=== PATIENT | male | born 1940 | race Caucasian/White ===

== ENCOUNTER 2020-12-10 16:10 | Inpatient (IN) | payer OTHER ==
[~2020-12-10] VITALS: Ht 167.6 cm; Wt 85.0 kg
--- NOTE | ~2020-12-10 | CN ---
PATIENT NAME:MIKY OSUNA MEDICAL RECORD: [id number] : 40 LOCATION:D.[facility] [place] ADMIT DATE: 12/10/20 ACCOUNT: [id number] CONSULTING PHYSICIAN: JARVIS NOVAK MD REFERRING PHYSICIAN: FELIPE GRECO MD DATE OF CONSULTATION: 12/13/2020 HISTORY OF PRESENT ILLNESS: The patient is an 80-year-old male with episodes of paroxysmal atrial fibrillation with rapid ventricular response and recent diagnosis of colon CA. I asked to evaluate from a cardiovascular standpoint. PAST MEDICAL HISTORY: Significant for; 1. Paroxysmal atrial fibrillation with rapid ventricular response -- currently in sinus rhythm. 2. Recently diagnosed colon cancer. PHYSICAL EXAMINATION: GENERAL: Pleasant, elderly white male, lying, in no apparent distress. VITAL SIGNS: Blood pressure 116/70, pulse 70 (regular). HEENT: Sclerae are clear; conjunctivae pink. NECK: Supple; no appreciated JVD. HEART: Regular rhythm and rate. I do not appreciate murmurs, gallops or rubs. LUNGS: Clear bilaterally. ABDOMEN: Benign. EXTREMITIES: Negative for edema. NEUROLOGIC: Nonfocal. LABORATORY DATA: Hemoglobin and hematocrit 11.1 and 34.4, platelet count is 200. Sodium 134, potassium 3.6, BUN 16, creatinine is 1.2. Troponin 0.017 (negative). DIAGNOSTIC DATA: Telemetry: Normal sinus rhythm at 70 beats per minute. MEDICATIONS: 1. Inderal 10 mg t.i.d. 2. Zosyn 4.5 g IV q.6 hours. 3. Flomax 0.4 mg daily. ASSESSMENT: 1. Paroxysmal atrial fibrillation -- currently in sinus rhythm. 2. Newly diagnosed colon cancer. PLAN: Continue current medical management at this time. We will schedule echocardiogram to assess LV function, valvular status. No further cardiac workup indicated at this time. Further recommendation as clinically indicated. Thank you for allowing us to participate in the care of this patient. TRANSINT:[id number] Voice Confirmation ID: [id number] DOCUMENT ID: [id number] CONSULT REPORT [id number] ENRRIQUEJARVIS GLEZ MD CC: [id number] DICTATION DATE: 12/13/20909 FACULTY DEAN: 12/13/20 1706 ADM IN [facility] [id number] [place] [address]
--- NOTE | ~2020-12-10 | EC ---
PATIENT:MIKY OSUNA DATE OF SERVICE: 12/10/20 SEX: M MEDICAL RECORD: [id number] DATE OF : 40 LOCATION:D.[facility] [place] AGE OF PATIENT: 80 ADMISSION DATE: 12/10/20 REFERRING PHYSICIAN: INTERPRETING PHYSICIAN: JARVIS BARR MD ECHOCARDIOGRAM REPORT ECHO CHARGES 4 ECHO COMPLETE Date: 12/13/20 CLINICAL DIAGNOSIS: TACHYCARDIA ECHOCARDIOGRAPHIC MEASUREMENTS (adult normal given) AC root (d.<3.7cm) 3.3 cm LV Septum d (<1.2 cm> 1.4 cm Valve Excursion 1.8 cm LV Septum (systole) 1.7 cm Left Atria (s.<4.0cm> 3.3 cm LVPW d(<1.2cm) 1.3 cm RV (d.<2.3cm) 4.0 cm LVPW (sytole) 1.8 cm LV diastole(<5.6CM) 5.2 cm MV E-F(>70mm/sec) cm LV systole 2.9 cm LVOT Diameter 2.0 cm MV exc.(>10mm) 1.3 cm Est.ejection fraction (50-75%) % DOPPLER: LVIT cm/sec A 76.0 cm/sec E 68.0 cm/sec LA cm/sec RVSP 42 mmHg LVOT 106 cm/sec AOP1/2T m/s Asc. Ao 165 cm/sec RVOT 64 cm/sec RA cm/sec PA 125 cm/sec AV Gradient Peak 10.84mmHg AV Mean 5.73 mmHg AV Area 2.1 cm MV Gradient Peak 2.59 mmHg MV Mean 1.12 mmHg MV Area cm COMMENTS: Network Contractor: 2 CHELSIE PUENTES Sales Promotion Manager: 5 Dr. Barr TAPE# PACS Pericardial Effusion N DATE OF SERVICE: CLINICAL INDICATION: Tachycardia. INTERPRETATION: Normal left ventricular chamber size and contractile function with ejection fraction of 55% to 60%. FINDINGS: Left atrial chamber appears normal. Right atrium and right ventricular chamber size and function appears normal. Aortic valve appears normal. Mild aortic regurgitation. No aortic stenosis. Mitral valve appears ECHOCARDIOGRAM REPORT [id number] MIKY OSUNA normal. Mild mitral regurgitation. No mitral stenosis. Tricuspid valve appears normal. Mild tricuspid regurgitation. No tricuspid stenosis. Pulmonic valve appears normal. No pulmonary insufficiency. No pericardial effusion visualized. IMPRESSION: Normal left ventricular chamber size and contractile function with an ejection fraction 55% to 60%. TRANSINT:[id number] Voice Confirmation ID: [id number] DOCUMENT ID: [id number] JARVIS BARR MD CC: [id number] DICTATION DATE: 12/13/201447 LEATHER SEASONER: 12/13/20 1701 ADM IN [facility] [address] [place] [address]
[2020-12-10] MEDS ORDERED: PROSCAR5 MG PO (16:37)
[2020-12-10] MEDS ORDERED: GABAPENTIN100 MG PO (16:37)
[2020-12-10] MEDS ORDERED: PROPRANOLOL HCL20 MG PO (16:39)
[2020-12-10] MEDS ORDERED: FLOMAX0.4 MG PO (16:56)
[2020-12-10] MEDS ORDERED: PROTONIX40 MG PO (16:57)
[2020-12-10 17:33] LABS: BASOPHILS 0.1 % (0-2); EOSINOPHILS 0.1 % (0-7); HEMATOCRIT 39.3 % (42.0-54.0); HEMOGLOBIN 13.1 g/dL (13.5-17.5); IMMATURE GRANULOCYTES 0.1 % (0-5); LYMPHOCYTE ABS# 0.86 10x3/uL (1.32-3.57); LYMPHOCYTES 8.7 % (15-50); MCH 26.9 pg (26.0-34.0); MCHC 33.3 g/dL (31.0-37.0); MCV 80.7 fL (80.0-100.0); MEAN PLATELET VOLUME 9.6 fL (7.4-10.4); MONOCYTES 5.7 % (2-11); NEUTROPHIL ABS# 8.46 10x3/uL (1.78-5.38); NEUTROPHILS 85.3 % (40-80); PLATELET COUNT 232 10x3/uL (130-400); RBC 4.87 10x6/uL (4.20-6.10); RDW 13.4 % (11.5-14.5); WBC 9.9 10x3/uL (4.8-10.8)
--- NOTE | 2020-12-10 17:46 | NUR ---
ADMINISTERED IV IN PATIENT RT FA 20G X1 STICK . PATIENT TOLERATED WELL. NO NEEDS VOICED AT THIS TIME. LADY BUNN IN TALKING WITH PATIENT AND SPOUSE. CONTINUE WITH PLAN OF CARE
[2020-12-10 17:50] LABS: ALBUMIN 3.6 g/dL (3.4-5.0); ANION GAP 10.8 mmol/L (8-16); BILIRUBIN - TOTAL 0.46 mg/dL (0.2-1.3); CALCIUM 9.3 mg/dL (8.5-10.1); CARBON DIOXIDE 28.2 mmol/L (21.0-32.0); CREATININE - SERUM 1.1 mg/dL (0.6-1.3); PROTEIN - SERUM 7.3 g/dL (6.4-8.2)
[2020-12-10 17:57] LABS: APTT 26.5 SECONDS (22.8-39.4); INR 1.11 (0.85-1.17); PROTIME 13.3 SECONDS (11.6-15.0)
--- NOTE | 2020-12-10 19:45 | NUR ---
RECEIVED BEDSIDE REPORT. PT LAYING IN BED A&O X4. PIV TO RIGHT FOREARM PATENT AND INFUSING, NO REDNESS OR SWELLING. ABD DISTENDED. PT HAS HEARING AIDS, GLASSES BS. PT ABLE TO AMBULATE AD DANIELLA. EDUCATED PT ON CL AND NEEDS, VERBALIZED UNDERSTANDING. BED LOW, CL IN REACH.
[2020-12-10 20:00] VITALS: BP 178/79
[2020-12-10 22:36] VITALS: BP 149/86; BMI 28.6
[2020-12-10 23:15] LABS: BILIRUBIN NEGATIVE (NEGATIVE); KETONE NEGATIVE (NEGATIVE); NITRITE NEGATIVE (NEGATIVE); UROBILINOGEN NORMAL mg/dL (< 2)
[2020-12-11] VITALS (10 sets, daily range): BP systolic 101–149; BP diastolic 52–88; BMI 28.5
[2020-12-11 05:37] LABS: BASOPHILS 0.2 % (0-2); EOSINOPHILS 0.5 % (0-7); HEMATOCRIT 37.2 % (42.0-54.0); HEMOGLOBIN 12.2 g/dL (13.5-17.5); IMMATURE GRANULOCYTES 0.1 % (0-5); LYMPHOCYTES 11.5 % (15-50); MCH 26.8 pg (26.0-34.0); MCHC 32.8 g/dL (31.0-37.0); MCV 81.6 fL (80.0-100.0); MEAN PLATELET VOLUME 10.3 fL (7.4-10.4); MONOCYTES 9.1 % (2-11); NEUTROPHIL ABS# 6.86 10x3/uL (1.78-5.38); NEUTROPHILS 78.6 % (40-80); PLATELET COUNT 250 10x3/uL (130-400); RBC 4.56 10x6/uL (4.20-6.10); RDW 13.6 % (11.5-14.5); WBC 8.7 10x3/uL (4.8-10.8)
[2020-12-11 06:18] LABS: ANION GAP 10.4 mmol/L (8-16); CALCIUM 8.8 mg/dL (8.5-10.1); CARBON DIOXIDE 27.6 mmol/L (21.0-32.0); CREATININE - SERUM 1.1 mg/dL (0.6-1.3); MAGNESIUM - SERUM 2.1 mg/dL (1.8-2.4); PHOSPHOROUS 3.8 mg/dL (2.5-4.9); THYROID STIMULATING HORMONE 1.8 uIU/mL (0.36-3.74)
--- NOTE | 2020-12-11 08:02 | NUR ---
PT CO OF PAIN. REQUESTING PAIN MEDS. WILL TREAT PER EMAR. CL IN REACH. WCTM
--- NOTE | 2020-12-11 12:57 | NUR ---
SPOKE WITH WHO HAD SECURITY CODE. GAVE AN UPDATE.
--- NOTE | 2020-12-11 14:05 | NUR ---
ENEMA NUMBER 6 GIVEN. CLEAR. TOLERATED WELL. WAITING ON COLONOSCOPY.
--- NOTE | 2020-12-11 16:00 | NUR ---
1600 PT VOMITED CHARCOAL APPEARANCE LIQUID. PT IS WHEEZING POST PROCEDURE. OXYGEN SATURATION 89% ON BNC 3L/MIN. PT STATES HE HAS BEEN HAVING SOME WHEEZING PREPROCEDURE. ALBUTEROL UPDRAFT AND PCXR ORDERED PER DR MORALEZ
--- NOTE | 2020-12-11 16:17 | NUR ---
1615 PCXR AND ALBUTEROL UPDRAFT COMPLETED. O2 SAT AT 92% ON BNC 2L/MIN
--- NOTE | 2020-12-11 19:07 | NUR ---
RECEIVED REPORT, ASSUMED CARE, BREATHING EVEN UNLABORED, CALL LIGHT IN REACH, BED LOWEST POSITION, DENIES NEEDS, NO S/S OF DISTRESS NOTED, ENCOURAGED PT TO NOTIFY STAFF OF ANY NEEDS, AT BEDSIDE
--- NOTE | 2020-12-11 21:25 | NUR ---
HELPED PT UP TO BATHROOM, BACK TO BED, O2 SAT STAYED 95%
[2020-12-12] VITALS (7 sets, daily range): BP systolic 95–124; BP diastolic 54–69; Ht 167.6 cm; Wt 85.0 kg
--- NOTE | 2020-12-12 03:42 | NUR ---
I have reviewed this patient and I concur with the Shift Assessment completed by the Licensed Practical Nurse today this shift.
[2020-12-12 04:37] LABS: BASOPHILS 0.2 % (0-2); EOSINOPHILS 0.2 % (0-7); HEMOGLOBIN 10.7 g/dL (13.5-17.5); IMMATURE GRANULOCYTES 0.2 % (0-5); LYMPHOCYTE ABS# 0.47 10x3/uL (1.32-3.57); LYMPHOCYTES 7.7 % (15-50); MCH 26.4 pg (26.0-34.0); MCHC 32.4 g/dL (31.0-37.0); MCV 81.5 fL (80.0-100.0); MEAN PLATELET VOLUME 9.4 fL (7.4-10.4); MONOCYTES 8.2 % (2-11); NEUTROPHIL ABS# 5.07 10x3/uL (1.78-5.38); NEUTROPHILS 83.5 % (40-80); RBC 4.05 10x6/uL (4.20-6.10); RDW 13.7 % (11.5-14.5)
[2020-12-12 04:43] LABS: PLATELET COUNT 172 10x3/uL (130-400); WBC 6.1 10x3/uL (4.8-10.8)
[2020-12-12 04:55] LABS: ANION GAP 10.3 mmol/L (8-16); CALCIUM 7.8 mg/dL (8.5-10.1); CARBON DIOXIDE 26.5 mmol/L (21.0-32.0); CREATININE - SERUM 1.2 mg/dL (0.6-1.3); MAGNESIUM - SERUM 1.8 mg/dL (1.8-2.4); PHOSPHOROUS 3.6 mg/dL (2.5-4.9); POTASSIUM - SERUM 3.8 mmol/L (3.5-5.1)
--- NOTE | 2020-12-12 08:15 | NUR ---
PT WANTING A SHOWER. ALERT, ORIENTED, AND AWAKE. STATED WE COULD TAKE A SHOWER IN A LITTLE BIT. HE VERBALIZED UNDERSTANDING. CL IN REACH. WCTM
--- NOTE | 2020-12-12 10:37 | NUR ---
IV THERAPY ON ANTERIOR OF RIGHT FOREARM INFILTRATED. REMOVED WITH TIP INTACT. IV THERAPY RESTARTED IN POSTERIOR OF RIGHT FOREARM WITH A 20 G ONE ATTEMPT. NO TURNIQUET USED. EFRAIN (NOLVIA) ON PHONE. DR SCHNEIDER IN ROOM SPEAKING WITH THEM NOW. CL IN REACH. NO FURTHER NEEDS AT THIS TIME. TM
[2020-12-12 11:12] LABS: % SATURATION 5 % (15-55); IRON 15 ug/dl (35-150); TOTAL IRON BIND CAPACITY 282 ug/dl (260-445); UNSAT IRON BIND CAPACITY 267 ug/dl (150-375)
--- NOTE | 2020-12-12 11:43 | NUR ---
PT PROVIDED WITH A TV GUIDE. NO NEEDS AT THIS TIME. CL IN REACH. WCTM
--- NOTE | 2020-12-12 11:46 | NUR ---
Domo HENDERSON APN MAKING ROUNDS. LET PT KNOW TO GO AHEAD AND CALL HIS . CL IN REACH. GAYLE
[2020-12-12 14:10] LABS: ALPHA FETOPROTEIN -(TUMOR MRK) 1.8 ng/mL (0.0-8.3); CEA 29.8 ng/mL (0.0-4.7)
[2020-12-12 18:16] LABS: CKMB 5.1 U/L (0.0-3.6); CREATINE KINASE 368 UL (21-232)
[2020-12-12 18:18] LABS: TROPONIN-I < 0.017 ng/mL (0.000-0.060)
--- NOTE | 2020-12-12 18:47 | NUR ---
PT STATES PAIN. CHECKED BP BEFORE GIVEN MORPHINE. PT BP WNL HOWEVER HR WAS IN THE 140 RANGE. CHECKED WITH MY PULSE OX. HR RAN FROM 140-200. YENIFER HENDERSON APN AND Lavinia KEMP APN GOT ORDERS FROM Lavinia KEMP APN FOR EKG, TELEMETRY, AND CHEST XRAY. DR TRIVEDI CAME AND SEEN PT EKG AND GAVE ORDERS FOR REPEAT CARDIAC ENZYMES AND EKG. ALSO, PLACED ORDER TO RESTART PT INDERAL AND A ONE TIME METOPOPROLOL 5 MG IV. CL IN REACH. PT STATES HE FEELS BETTER AT THIS TIME. WCTM
--- NOTE | 2020-12-12 23:00 | NUR ---
ATTEMPTED TO GET EKG AT 2300 STAFF HAD THE ROOM BLOCKED STRIPPING THE FLOORS, WILL GET AT A LATER TIME
[2020-12-13 01:15] LABS: CKMB 4.1 U/L (0.0-3.6); CREATINE KINASE 284 UL (21-232); TROPONIN-I 0.032 ng/mL (0.000-0.060)
--- NOTE | 2020-12-13 03:00 | NUR ---
I have reviewed this patient and I concur with the Shift Assessment completed by the Licensed Practical Nurse today this shift.
[2020-12-13 06:55] LABS: CALC OSMOLALITY 268 mosm/kg (275-300); CARBON DIOXIDE 27.5 mmol/L (21.0-32.0); CHLORIDE - SERUM 100 mmol/L (98-107); CKMB 3.5 U/L (0.0-3.6); CREATINE KINASE 223 UL (21-232); CREATININE - SERUM 1.2 mg/dL (0.6-1.3); GLUCOSE 105 mg/dL (74-106); MAGNESIUM - SERUM 2.1 mg/dL (1.8-2.4); PHOSPHOROUS 2.6 mg/dL (2.5-4.9); POTASSIUM - SERUM 3.6 mmol/L (3.5-5.1); SODIUM 134 mmol/L (136-145); TROPONIN-I < 0.017 ng/mL (0.000-0.060); UREA NITROGEN 16 mg/dL (7-18); eGFR NON AFRICAN AMERICAN 62 mL/min (90-120)
[2020-12-13 07:22] LABS: BASOPHILS 0.2 % (0-2); EOSINOPHILS 1.3 % (0-7); HEMATOCRIT 34.4 % (42.0-54.0); HEMOGLOBIN 11.1 g/dL (13.5-17.5); IMMATURE GRANULOCYTES 0.1 % (0-5); LYMPHOCYTE ABS# 0.43 10x3/uL (1.32-3.57); LYMPHOCYTES 4.7 % (15-50); MCH 26.6 pg (26.0-34.0); MCHC 32.3 g/dL (31.0-37.0); MCV 82.3 fL (80.0-100.0); MEAN PLATELET VOLUME 9.4 fL (7.4-10.4); MONOCYTES 8.9 % (2-11); NEUTROPHIL ABS# 7.73 10x3/uL (1.78-5.38); NEUTROPHILS 84.8 % (40-80); PLATELET COUNT 200 10x3/uL (130-400); RBC 4.18 10x6/uL (4.20-6.10); RDW 13.9 % (11.5-14.5)
[2020-12-13 07:27] LABS: WBC 9.1 10x3/uL (4.8-10.8)
[2020-12-13 09:27] VITALS: BP 97/60
--- NOTE | 2020-12-13 11:43 | NUR ---
RESTING IN BED, NO DISTRESS NOTED, IV INFUSING PER RFA, TELE IN PLACE, TAKING PO MEDS WITH EASE
--- NOTE | 2020-12-13 12:50 | NUR ---
MEDICATED FOR PAIN, CONT TO MONITOR PAIN AND INTAKE
[2020-12-13 13:40] VITALS: BP 103/68
[2020-12-13 18:00] VITALS: BP 124/64
--- NOTE | 2020-12-13 19:26 | NUR ---
PATIENT RESTING IN BED WITH NO S/S OF DISTRESS AND DENIES NEEDS AT THIS TIME. AT BEDSIDE. BED IN LOWEST POSITION AND CALL LIGHT WITHIN REACH. ENCOURAGED PATIENT TO CALL WITH NEEDS.
--- NOTE | 2020-12-13 20:49 | NUR ---
ADMINISTERED MEDS PER ORDERS. PATIENT ADOLFO WELL. ENCOURAGED TO CALL WITH NEEDS.
[2020-12-13 23:02] VITALS: BP 111/61
[2020-12-14 05:10] VITALS: BP 119/76
--- NOTE | 2020-12-14 07:46 | NUR ---
PATIENT IS SITTING UP IN BED, STATES HE CAN NOT HAVE ANYTHING TO DRINK OR EAT TODAY THEY ARE DOING A PROCEDURE, DID NOT GET THAT IN REPORT AND DO NOT SEE ORDERS WILL LOOK FURTHER INTO REPORTS TO SEE WHAT I CAN FIND. PATIENT IS C/O HGAS PRESURE THIS MORNING. CONTINUE WITH PLAN OF CARE
[2020-12-14 07:55] LABS: BASOPHILS 0.1 % (0-2); HEMATOCRIT 31.9 % (42.0-54.0); HEMOGLOBIN 10.2 g/dL (13.5-17.5); IMMATURE GRANULOCYTES 0.3 % (0-5); LYMPHOCYTE ABS# 0.45 10x3/uL (1.32-3.57); MCH 26.3 pg (26.0-34.0); MCV 82.2 fL (80.0-100.0); MEAN PLATELET VOLUME 9.6 fL (7.4-10.4); MONOCYTES 11.5 % (2-11); NEUTROPHIL ABS# 5.81 10x3/uL (1.78-5.38); NEUTROPHILS 78.1 % (40-80); PLATELET COUNT 210 10x3/uL (130-400); RBC 3.88 10x6/uL (4.20-6.10); RDW 14.1 % (11.5-14.5); WBC 7.5 10x3/uL (4.8-10.8)
[2020-12-14 08:04] LABS: CALC OSMOLALITY 276 mosm/kg (275-300); CALCIUM 8.2 mg/dL (8.5-10.1); CARBON DIOXIDE 25.9 mmol/L (21.0-32.0); CHLORIDE - SERUM 104 mmol/L (98-107); CREATININE - SERUM 0.9 mg/dL (0.6-1.3); GLUCOSE 106 mg/dL (74-106); MAGNESIUM - SERUM 2.1 mg/dL (1.8-2.4); PHOSPHOROUS 2.3 mg/dL (2.5-4.9); POTASSIUM - SERUM 3.7 mmol/L (3.5-5.1); SODIUM 138 mmol/L (136-145); UREA NITROGEN 16 mg/dL (7-18); eGFR NON AFRICAN AMERICAN 86 mL/min (90-120)
[2020-12-14 08:35] VITALS: BP 171/75
[2020-12-14 11:27] VITALS: BP 119/73
--- NOTE | 2020-12-14 11:35 | NUR ---
ORDER FOR NGT RECEIVED, PLACED NGT TO PT LEFT NARE, PATIENT TOLERATED WELL, PT C/O ABD PAIN AND GAS, ASSURED PATIENT THAT NGT SHOULD HELP WITH GAS PAIN. ORDER FOR KUB TO CHECK PLACEMENT
--- NOTE | 2020-12-14 12:06 | NUR ---
ORDERED PATIENT STAT KUB FOR NGT PLACEMENT. STILL AWAITING XRAY. CONTINUE WITH PLAN OF CARE
--- NOTE | 2020-12-14 12:40 | NUR ---
BETTER AFTER NGT INSERTION PER NATALIO ROB. PATIENT IS WITHOUT DISTRESS.
--- NOTE | 2020-12-14 12:50 | NUR ---
CALLED [facility] IN [facility] TO STAT KUB ORDER PLACED AT 1130. 1250 ANDSTILL HAVE NOT DONE YET. PER CHRIS WILL LET SOMEONE KNOW.CONTINUE WITH PLAN OF CARE
--- NOTE | 2020-12-14 14:12 | NUR ---
FIRST KUB SHOWED COILED IN FUNDUS, REMOVED AND READVANCED, HAD RN MACK Rice RECHECK WITH ME AND ORDERED ANOTHER KUB. CONTINUE WITH PLAN OF CARE
[2020-12-14 17:19] VITALS: BP 134/63
[2020-12-14 20:00] VITALS: BP 104/59
--- NOTE | 2020-12-14 20:00 | NUR ---
PT SITTING UP IN BED WITHOUT DISTRESS, AOX4. NGT TO LIS. NO NAUSEA AT THIS TIME. AT BEDSIDE. DENIES NEEDS. CL IN REACH
[2020-12-15] VITALS: BP 144/80
--- NOTE | 2020-12-15 00:45 | NUR ---
PT STANDING UP ON SIDE OF BED. THIS NURSE WENT TO ENTER ROOM TO ASSIST PT WITH CLAMPING NGT SO HE COULD AMBULATE TO BATHROOM WHEN THIS NURSE SAW PT REMOVE NGT BEFORE ENTERING THE ROOM. THIS NURSE ASKED PT WHY HE REMOVED THE NGT AND PT STATES "I CANNOT TAKE IT ANY MORE" ASKED PT IF HE IS GOING TO LET THIS NURSE PLACE NEW NGT AND PT STATES NO THAT HE DOES NOT WANT ONE. STATES HE IS HURTING EVERYWHERE. TOOK PT MORPHINE AND ZOFRAN. DENIES OTHER NEEDS AT THIS TIME
[2020-12-15 04:00] VITALS: BP 116/65
[2020-12-15 06:52] LABS: BASOPHILS 0.5 % (0-2); HEMATOCRIT 30.8 % (42.0-54.0); HEMOGLOBIN 9.9 g/dL (13.5-17.5); IMMATURE GRANULOCYTES 0.2 % (0-5); LYMPHOCYTE ABS# 0.58 10x3/uL (1.32-3.57); LYMPHOCYTES 9.1 % (15-50); MCH 26.5 pg (26.0-34.0); MCHC 32.1 g/dL (31.0-37.0); MCV 82.4 fL (80.0-100.0); MEAN PLATELET VOLUME 9.5 fL (7.4-10.4); MONOCYTES 12.7 % (2-11); NEUTROPHIL ABS# 4.76 10x3/uL (1.78-5.38); NEUTROPHILS 74.5 % (40-80); PLATELET COUNT 221 10x3/uL (130-400); RBC 3.74 10x6/uL (4.20-6.10); RDW 14.1 % (11.5-14.5); WBC 6.4 10x3/uL (4.8-10.8)
[2020-12-15 07:05] LABS: CALC OSMOLALITY 278 mosm/kg (275-300); CALCIUM 7.9 mg/dL (8.5-10.1); CARBON DIOXIDE 26.5 mmol/L (21.0-32.0); CHLORIDE - SERUM 106 mmol/L (98-107); CREATININE - SERUM 0.8 mg/dL (0.6-1.3); GLUCOSE 85 mg/dL (74-106); PHOSPHOROUS 2.7 mg/dL (2.5-4.9); POTASSIUM - SERUM 3.7 mmol/L (3.5-5.1); SODIUM 140 mmol/L (136-145); UREA NITROGEN 14 mg/dL (7-18); eGFR NON AFRICAN AMERICAN > 90 mL/min (90-120)
--- NOTE | 2020-12-15 08:00 | NUR ---
PATIENT LAYING IN BED ASLEEP, EASILY AWAKENED FOR ASSESSMENT. PATIENT STATED HE IS READY FOR SURGERY AND NGT WAS UNCOMFORTABLE. NO S/S OF DISTRESS, CONTINUE WITH PLAN OF CARE
[2020-12-15 09:28] VITALS: BP 127/70
--- NOTE | 2020-12-15 09:45 | NUR ---
ORDERS TO REINSERT NGT, PATIENT ASKED THAT I WAIT UNTIL THIS AFTERNOON SO HE CAN MENTALLY PREPARE HIMSELF FOR NGT. CONTINUE WITH PLAN OF CARE
[2020-12-15 12:37] VITALS: BP 109/54
--- NOTE | 2020-12-15 14:13 | NUR ---
Nutrition Follow-up: Still bloated, no BM per MD notes. Diet: NPO (was clear liquid) Plans for colectomy tomorrow morning. Last BM: 12/11/20 x 6 Meds noted: probiotics, abx, miralax, NS@100 Labs reviewed Recommend: -Advance diet as soon as medically feasible after surgery. -If unable to advance diet past clear liquid within 72hrs recommend nutrition support as patient has been without adequate nutrition x 5 days now. -RD will follow-up 12/17/20.
--- NOTE | 2020-12-15 15:07 | NUR ---
CLAMPED PATIENT NGT FOR SCHEDULED MEDICATIONS. NO OTHER NEEDS AT THIS TIME. CONTINUE WITH PLAN OF CARE
--- NOTE | 2020-12-15 16:00 | NUR ---
PATIENT SPOUSE CALLED AND VOICED CONCERN IN REGARDS TO PATIENT SURGERY AND UNANSWERED QUESTIONS, ASSURED PATIENT SPOUSE I WILL CALL DR WILLIAMSON AND ASK THAT HE CALL PATIENT SPOUSE. NO OTHER NEEDS AT THIS TIME. CONTINUE WITH PLAN OF CARE
[2020-12-15 17:27] VITALS: BP 123/74
--- NOTE | 2020-12-15 19:22 | NUR ---
HAS REMAIND WITHOUT NEEDS TODAY.CONT PLAN OF CARE
[2020-12-15 20:00] VITALS: BP 138/76
--- NOTE | 2020-12-15 20:00 | NUR ---
PT SITTING UP IN BED, AOX4. NGT TO LEFT NARE LIS. PT GIVEN HIBI CLENS AT THIS TIME. DENIES NEEDS. CL IN REACH, BED ALARM ON
--- NOTE | 2020-12-15 21:45 | NUR ---
ASSISTED PT TO BATHROOM AND BACK TO BED
[2020-12-16] VITALS (15 sets, daily range): BP systolic 112–140; BP diastolic 65–82
--- NOTE | 2020-12-16 01:15 | NUR ---
BED ALARM SOUNDING, PT DISCONNECTED HIMSELF FROM NGT SUCTION AND WAS WALKING TOWARDS BATHROOM WITH IV TUBING PULLED TIGHT. HELPED PT UNTANGLE AND GET TO BATHROOM THEN BACK TO BED. RECONNECT NGT TO SUCTION. DENIES OTHER NEEDS AT THIS TIME. CL IN REACH, BED ALARM ON
--- NOTE | 2020-12-16 02:05 | NUR ---
PT UP AND BED ALARM SOUNDING. THIS NURSE WAS HURRYING DOWN THE TATUM TOWARD ALARM THIS NURSE SAW PT PULL NGT OUT OF HIS NOSE. ASKED PT WHAT HE WAS DOING AND HE STATES "I HAVE NOT SEEN YOU IN HOURS AND I DID NOT KNOW WHAT TO DO AND HE SAID IT WOULD COME OUT BEFORE SURGERY" TOLD PT THAT I HAD NO ORDER TO REMOVE NGT AND THAT DR WANTED TO KEEP NGT IN, THAT HE ASKED FOR IT TO BE REPLACED AFTER IT CAME OUT YESTERDAY. PT STATES HE DID NOT THINK IT WAS DOING ANYTHING OR ANYTHING WAS COMING OUT. TOLD PT THAT NOTHING WAS COMING OUT BECAUSE HE HAS BEEN NPO AND THAT IT WAS TO HELP IT WITH GAS. PT STATES MULTIPLE TIMES HE THOUGHT DR SAID IT WOULD COME OUT BEFORE SURGERY ANYWAY AND DID NOT WANT NGT REPLACED, THAT HE DID NOT KNOW WHERE I WAS TO ASK. TOLD PT I HAD JUST BEEN ROOM ABOUT A HOUR PRIOR AND HELPED HIM TO BATHROOM. PT STATES HE DID NOT REMEMBER THAT. REORIENTED PT TO CALL LIGHT AND TO CALL FOR HELP OR QUESTIONS NEXT TIME AND TURNED BED ALARM ON
[2020-12-16 07:06] LABS: ALBUMIN 2.3 g/dL (3.4-5.0); ALKALINE PHOSPHATASE 74 U/L (30-120); ALT (SGPT) 22 U/L (10-68); BILIRUBIN - TOTAL 0.47 mg/dL (0.2-1.3); CALC OSMOLALITY 276 mosm/kg (275-300); CALCIUM 7.7 mg/dL (8.5-10.1); CARBON DIOXIDE 23.9 mmol/L (21.0-32.0); CHLORIDE - SERUM 106 mmol/L (98-107); CREATININE - SERUM 0.9 mg/dL (0.6-1.3); GLUCOSE 89 mg/dL (74-106); MAGNESIUM - SERUM 2.2 mg/dL (1.8-2.4); PHOSPHOROUS 2.6 mg/dL (2.5-4.9); POTASSIUM - SERUM 3.4 mmol/L (3.5-5.1); PROTEIN - SERUM 5.5 g/dL (6.4-8.2); SODIUM 139 mmol/L (136-145); UREA NITROGEN 13 mg/dL (7-18); eGFR NON AFRICAN AMERICAN 86 mL/min (90-120)
--- NOTE | 2020-12-16 07:10 | NUR ---
RECEIVED CALL TO PREOP PATIENT, PATIENT PULLED NGT OUT AGAIN EARLY THIS MORNING STATED IT IS UNCOMFORTABLE AND NOT DOING ANYTHING ANYWAYS. REFUSED INSERTION, PATIENT IS PREOPED AND READY TO GO
[2020-12-16 07:29] LABS: BASOPHILS 0.4 % (0-2); EOSINOPHILS 2.1 % (0-7); HEMATOCRIT 31.4 % (42.0-54.0); HEMOGLOBIN 10.1 g/dL (13.5-17.5); IMMATURE GRANULOCYTES 0.4 % (0-5); LYMPHOCYTE ABS# 0.63 10x3/uL (1.32-3.57); LYMPHOCYTES 7.6 % (15-50); MCH 26.4 pg (26.0-34.0); MCHC 32.2 g/dL (31.0-37.0); MEAN PLATELET VOLUME 9.2 fL (7.4-10.4); MONOCYTES 11.2 % (2-11); NEUTROPHIL ABS# 6.49 10x3/uL (1.78-5.38); NEUTROPHILS 78.3 % (40-80); PLATELET COUNT 228 10x3/uL (130-400); RBC 3.83 10x6/uL (4.20-6.10); RDW 14.1 % (11.5-14.5)
[2020-12-16 07:34] LABS: WBC 8.3 10x3/uL (4.8-10.8)
--- NOTE | 2020-12-16 17:55 | NUR ---
PT REPORTS PAIN 04/17 AND REQUESTS SOMETHINNG ELSE FOR PAIN. DR WILLIAMSON PRESENT IN ICU AND ORDER FOR DILAUDID 1 MG ONE TIME GIVEN. WILL REASSESS PAIN. PT STABLE WITH EQUAL NON LABORED RR. A/O X4. DENIES ANY FURTHER COMPLAINTS AT PRESENT TIME
[2020-12-17] VITALS (12 sets, daily range): BP systolic 125–147; BP diastolic 68–101
[2020-12-17 05:37] LABS: BASOPHILS 0.2 % (0-2); EOSINOPHILS 0 % (0-7); HEMATOCRIT 33.7 % (42.0-54.0); IMMATURE GRANULOCYTES 0.2 % (0-5); LYMPHOCYTE ABS# 0.63 10x3/uL (1.32-3.57); LYMPHOCYTES 6.4 % (15-50); MCH 26.4 pg (26.0-34.0); MCHC 32.6 g/dL (31.0-37.0); MCV 80.8 fL (80.0-100.0); MEAN PLATELET VOLUME 9.6 fL (7.4-10.4); MONOCYTES 10.5 % (2-11); NEUTROPHIL ABS# 8.17 10x3/uL (1.78-5.38); NEUTROPHILS 82.7 % (40-80); PLATELET COUNT 262 10x3/uL (130-400); RBC 4.17 10x6/uL (4.20-6.10); RDW 14.3 % (11.5-14.5); WBC 9.9 10x3/uL (4.8-10.8)
--- NOTE | 2020-12-17 05:53 | NUR ---
Paged CREASING AND CUTTING PRESS FEEDER on-call to see if the morphine 4mg q4hr needed to be renewed. Given orders to not renew medication due to a similar order being in place.
--- NOTE | 2020-12-17 06:12 | NUR ---
Patient given bath and bed alarm is set due to patient frequently attempting to exit bed.
[2020-12-17 06:17] LABS: ALBUMIN 2.1 g/dL (3.4-5.0); ALKALINE PHOSPHATASE 74 U/L (30-120); ALT (SGPT) 22 U/L (10-68); BILIRUBIN - TOTAL 0.37 mg/dL (0.2-1.3); CARBON DIOXIDE 27.8 mmol/L (21.0-32.0); CHLORIDE - SERUM 103 mmol/L (98-107); CREATININE - SERUM 0.9 mg/dL (0.6-1.3); MAGNESIUM - SERUM 1.9 mg/dL (1.8-2.4); POTASSIUM - SERUM 3.5 mmol/L (3.5-5.1); PROTEIN - SERUM 5.3 g/dL (6.4-8.2); SODIUM 137 mmol/L (136-145); eGFR NON AFRICAN AMERICAN 86 mL/min (90-120)
[2020-12-17 06:22] LABS: CALC OSMOLALITY 275 mosm/kg (275-300); GLUCOSE 158 mg/dL (74-106); PHOSPHOROUS 1.9 mg/dL (2.5-4.9); UREA NITROGEN 9 mg/dL (7-18)
--- NOTE | 2020-12-17 07:30 | NUR ---
PT RESTING IN BED STABLE WITH EQUAL NON LABORED RR. PT C/O PAIN 6/10 TO ABD. INCISION SITE CLEAN WITH DRESSING CDI. ABD BINDER IN PLACE. A/O X2 WITH SOME CONFUSION. SCD'S ON AND SKIN ASSESSED WITH NO ABNORMALITIES. PULSES IN TACT. NO FURTHER NEEDS OR CONCERNS AT PRESENT TIME. WILL CONT TO MONITOR.
--- NOTE | 2020-12-17 10:07 | NUR ---
PT PULLING AT JAMES DRAIN TUBE AND ATTEMPTING TO GET OUT OF BED. DR WILLIAMSON NOTIFIED AND ORDER REC' FOR BILAT SOFT WRIST RESTRAINTS. PT REPORTS PAIN 8/10 AND PRN PAIN MED GIVEN PER EMAR.
--- NOTE | 2020-12-17 10:08 | NUR ---
REPORT CALLED TO LORENZO BHATTI FOR TRANSFER PT TO 2217. RN HAS NO FURTHER QUESTIONS OR NEEDS AT TIME REPORT WAS CALLED. PT STABLE WITH EQUAL NON LABORED RR. TRANSPORTED VIA STRETCHER.
--- NOTE | 2020-12-17 11:21 | NUR ---
PATIENT LAYING IN BED WITH IV INTACT. JAMES AND SKINNER INTACT. RESTRAINTS LEFT OFF AT THIS TIME. TRYING NOT TO HAVE TO RESTART DEPENDING HOW PATIENT REACTS. NO COMPLAINTS OR SIGNS OF DISTRESS. VIDEO MONITOR PLACED IN ROOM. HERO ALARM ON. CALL LIGHT WITHIN REACH.
--- NOTE | 2020-12-17 13:00 | NUR ---
PATIENT SKINNER LEAKING MODERATE AMOUNT. REPLACED AT THIS TIME. IV INTACT. CALL LIGHT WITHIN REACH.
--- NOTE | 2020-12-17 14:00 | NUR ---
PLACED RESTRAINTS BACK ON PATIENT BECAUSE HE WAS TRYING TO PULL DRAIN OUT AND TRYING TO GET OUT OF BED. EXPLAINED TO PATIENT THAT I HAD TO PUT THEM BACK ON FOR HIS SAFETY BECAUSE HE JUST HAS SURGERY YESTERDAY AND HE CAN NOT PULL HIS DRAIN OUT OR GET UP ALONE. VERBALIZED UNDERSTANDING. BA ON. CALL LIGHT WITHIN REACH.
--- NOTE | 2020-12-17 19:18 | NUR ---
PATIENT IN BED WITH IV INTACT. NO COMPLAINTS OR SIGNS OF DISTRESS. FAMILY AT BEDSIDE. SKINNER AND JAMES INTACT. RESTRIANTS OFF AT THIS TIME. CALL LIGHT WITHIN REACH. FALL PRECAUTIONS ON.
--- NOTE | 2020-12-17 20:00 | NUR ---
SITTING UP IN BED, PLEASANTLY CONFUSED. ORIENTED TO SELF. REPORTS MODERATE DISCOMFORT WHILE COUGHING OR MOVING. ABDOMINAL DRESSINGS INTACT. JAMES DRAIN COMPRESSED. CTM.
--- NOTE | 2020-12-17 22:00 | NUR ---
EYES CLOSED, RESPIRATIONS EVEN/NON LABORED. NO S/SX OF DISTRESS, CTM.
[2020-12-18] VITALS: BP 124/68
--- NOTE | 2020-12-18 | NUR ---
WOKE UP UPON ENTERING ROOM. PT STRESSED OVER LOST HEARING AID, ASSURED PT I WOULD HELP FIND IT IN THE MORNING AFTER HE GOT SOME REST. CPOC.
--- NOTE | 2020-12-18 02:00 | NUR ---
RIGHT SUBCLAVIAN CENTRAL LINE LEAKING FLUIDS AT INSERTION SITE. CENTRAL LINE DRESSING CHANGED, BLUE LUER LOCK HUBS CHANGED, ASPIRATED AND FLUSHED TO ASSURE PATENCY. FLUIDS REATTATCHED, CTM.
--- NOTE | 2020-12-18 02:30 | NUR ---
CENTRAL LINE SITE LEAKING FLUIDS STILL. SALINE LOCKED. 20G IV SITED TO RIGHT FOREARM. FLUIDS INFUSING, CTM.
--- NOTE | 2020-12-18 03:07 | NUR ---
OTHER HEARING AID FOUND ON PTs SINK. PT INSISTS ON WEARING BOTH TO GO BACK TO SLEEP, CTM.
[2020-12-18 04:00] VITALS: BP 126/74
[2020-12-18 05:51] LABS: BASOPHILS 0.2 % (0-2); EOSINOPHILS 2.2 % (0-7); HEMATOCRIT 31.2 % (42.0-54.0); IMMATURE GRANULOCYTES 0.4 % (0-5); LYMPHOCYTES 10.6 % (15-50); MCHC 32.1 g/dL (31.0-37.0); MEAN PLATELET VOLUME 9.5 fL (7.4-10.4); MONOCYTES 8.2 % (2-11); NEUTROPHIL ABS# 6.66 10x3/uL (1.78-5.38); NEUTROPHILS 78.4 % (40-80); RBC 3.85 10x6/uL (4.20-6.10); RDW 14.3 % (11.5-14.5); WBC 8.5 10x3/uL (4.8-10.8)
[2020-12-18 06:03] LABS: PLATELET COUNT 182 10x3/uL (130-400)
[2020-12-18 06:25] LABS: ALKALINE PHOSPHATASE 67 U/L (30-120); ALT (SGPT) 19 U/L (10-68); BILIRUBIN - TOTAL 0.36 mg/dL (0.2-1.3); CALC OSMOLALITY 275 mosm/kg (275-300); CALCIUM 7.9 mg/dL (8.5-10.1); CHLORIDE - SERUM 104 mmol/L (98-107); CREATININE - SERUM 0.9 mg/dL (0.6-1.3); GLUCOSE 117 mg/dL (74-106); MAGNESIUM - SERUM 1.9 mg/dL (1.8-2.4); PHOSPHOROUS 2.3 mg/dL (2.5-4.9); POTASSIUM - SERUM 3.6 mmol/L (3.5-5.1); SODIUM 138 mmol/L (136-145); UREA NITROGEN 10 mg/dL (7-18); eGFR NON AFRICAN AMERICAN 86 mL/min (90-120)
--- NOTE | 2020-12-18 08:40 | NUR ---
Nutrition follow-up: POD#2 of right colectomy Feeling better and passing gas; no BM yet NPO but surgeon note states advancing diet today Labs reviewed WT: 187# RDN follow-up: 12/21/20
--- NOTE | 2020-12-18 08:45 | NUR ---
DRESSING CHANGED AT THIS TIME BY CHAPIN MEDICAL STUDENT. PATIENT IN CHAIR WITH ALARM ON. CALL LIGHT WITHIN REACH.
[2020-12-18 09:23] VITALS: BP 116/87
[2020-12-18 12:34] VITALS: BP 121/63
--- NOTE | 2020-12-18 15:34 | NUR ---
OT NOTE: PT REQUIRED MIN A FOR SUPINE TO SIT. PT REQUIRED MIN A FOR SIT TO STAND. PT COMPLETED FACE AND HAND HYGIENE WITH MOD A. PT REQUIRED MAX A FOR LB HYGIENE. PT IS CONFUSED. NURSING AWARE. 3-112 THANK YOU,SUMA WALSH
[2020-12-18 17:46] VITALS: BP 120/74
[2020-12-19 01:56] VITALS: BP 115/85
--- NOTE | 2020-12-19 02:35 | NUR ---
I have reviewed this patient and I concur with the Shift Assessment completed by the Licensed Practical Nurse today this shift.
[2020-12-19 04:55] VITALS: BP 120/73
--- NOTE | 2020-12-19 09:00 | NUR ---
ALERT AND ORIENTED WITH ABDOMEN BINDER INTACT WITH DRESSING INTACT. BOWEL SOUNDS HYPOACTIVE X4. IVF INFUSING AT PRESCRIBED RATE. SCD'S ON WHILE IN BED. UP WITH SBA AMBULATING WITH THERAPY. FALL PRECAUTIONS IN PLACE. IVF INFUSING TO RIGHT SUBCLAVIAN. TORDOL GIVEN PRN ABDOMINAL PAIN 7/10 AND EFFECTIVE 3/10. ENCOURAGED TO USE CALL LIGHT FOR ASSIST. DEMONSTRATES PROPER USE OF INCENTIVE SPIROMETRY
[2020-12-19 09:07] VITALS: BP 140/84
[2020-12-19 09:15] LABS: BASOPHILS 0.2 % (0-2); EOSINOPHILS 3.2 % (0-7); HEMATOCRIT 32.5 % (42.0-54.0); HEMOGLOBIN 10.6 g/dL (13.5-17.5); IMMATURE GRANULOCYTES 0.5 % (0-5); LYMPHOCYTE ABS# 0.83 10x3/uL (1.32-3.57); LYMPHOCYTES 9.9 % (15-50); MCH 26.4 pg (26.0-34.0); MCHC 32.6 g/dL (31.0-37.0); MEAN PLATELET VOLUME 9.5 fL (7.4-10.4); MONOCYTES 7.3 % (2-11); NEUTROPHIL ABS# 6.64 10x3/uL (1.78-5.38); NEUTROPHILS 78.9 % (40-80); PLATELET COUNT 199 10x3/uL (130-400); RBC 4.01 10x6/uL (4.20-6.10); RDW 14.4 % (11.5-14.5); WBC 8.4 10x3/uL (4.8-10.8)
[2020-12-19 09:26] LABS: ALKALINE PHOSPHATASE 83 U/L (30-120); ALT (SGPT) 19 U/L (10-68); BILIRUBIN - TOTAL 0.36 mg/dL (0.2-1.3); CALC OSMOLALITY 277 mosm/kg (275-300); CHLORIDE - SERUM 104 mmol/L (98-107); CREATININE - SERUM 0.9 mg/dL (0.6-1.3); GLUCOSE 116 mg/dL (74-106); MAGNESIUM - SERUM 1.9 mg/dL (1.8-2.4); POTASSIUM - SERUM 3.6 mmol/L (3.5-5.1); PROTEIN - SERUM 5.3 g/dL (6.4-8.2); SODIUM 139 mmol/L (136-145); UREA NITROGEN 10 mg/dL (7-18); eGFR NON AFRICAN AMERICAN 86 mL/min (90-120)
[2020-12-19 09:27] LABS: PHOSPHOROUS 3.6 mg/dL (2.5-4.9)
[2020-12-19 11:53] VITALS: BP 111/66
--- NOTE | 2020-12-19 11:55 | NUR ---
REHAB PRESCREEN THANK YOU FOR THIS EVAL, THIS PATIENT HAS STARTED THERAPY WITH TRANSFERS ONLY SO FAR, WILL NEED TO BE MORE BE PROGRESSIVE BEFORE ABLE TO ADMIT. WE WILL MONITOR PROGRESS, WHILE WAITING ON [employer] APPROVAL WITH A PRIOR AUTH. THANK YOU FOR THIS EVAL, WILL NOTIFY WHEN RECIEVE A REPLY FROM [facility]. CLINICAL LIASION VICKIECOLLEEN BASURTO LPN
[2020-12-19 17:20] VITALS: BP 135/71
--- NOTE | 2020-12-19 19:00 | NUR ---
BEDSIDE REPORT RECEIVED AND CARE OF PT ASSUMED. PT LYING IN HIGH SANTIAGO'S POSITION. RIGHT SC CENTRAL LINE PATENT, BUT LEAKING WITH D5 1/2 NS W/ 20 KCL INFUSING AT 50 ML/HR. ABDOMINAL BINDER IN PLACE. IS AT BEDSIDE AND INSTRUCTIONS RE-ENFORCED. SCD'S IN USE ON BLE. WILL MONITOR FOR NEEDS.
[2020-12-19 20:00] VITALS: BP 128/72
--- NOTE | 2020-12-19 21:06 | NUR ---
HS MEDICATIONS GIVEN. WILL CONTINUE TO MONITOR FOR NEEDS.
--- NOTE | 2020-12-19 21:30 | NUR ---
ASSISTED PT UP TO HAVE BM...MED SIZED SOFT, GREENISH STOOL. POSITIONED BACK IN BED FOR COMFORT.
[2020-12-20] VITALS: BP 135/75
--- NOTE | 2020-12-20 02:10 | NUR ---
PT HAD SMALL LOOSE, GREEN BM. REQUIRING MINIMAL ASSISTANCE AMBULATING TO THE RESTROOM.
[2020-12-20 04:00] VITALS: BP 115/67
--- NOTE | 2020-12-20 04:00 | NUR ---
CHANGED DRESSING ON SC CVL, IT IS LEAKING IVF AND BLOOD. FLUSHED ALL LUMENS AND ONLY ONE DID NOT LEAK....CONNECTED IVF BACK TO THAT LUMEN. NONE OF THE LUMENS WOULD DRAW, SO TUBES GIVEN BACK TO ELECTRONIC PREPRESS OPERATOR TO DRAW LABS.
--- NOTE | 2020-12-20 04:38 | NUR ---
GAVE TORADOL IVP PER PRN ORDER PER PT REQUEST FOR ACHING PAIN IN ABDOMEN, ESPICIALLY WHEN MOVING OR COUGHING AT LEVEL 7/10. WILL MONITOR FOR EFFECTIVENESS.
[2020-12-20 06:22] LABS: BASOPHILS 0.2 % (0-2); EOSINOPHILS 2.8 % (0-7); HEMATOCRIT 31.5 % (42.0-54.0); HEMOGLOBIN 10.2 g/dL (13.5-17.5); IMMATURE GRANULOCYTES 0.3 % (0-5); LYMPHOCYTE ABS# 0.73 10x3/uL (1.32-3.57); LYMPHOCYTES 8.5 % (15-50); MCH 26.2 pg (26.0-34.0); MCHC 32.4 g/dL (31.0-37.0); MEAN PLATELET VOLUME 9.7 fL (7.4-10.4); MONOCYTES 5.9 % (2-11); NEUTROPHIL ABS# 7.06 10x3/uL (1.78-5.38); NEUTROPHILS 82.3 % (40-80); PLATELET COUNT 183 10x3/uL (130-400); RBC 3.89 10x6/uL (4.20-6.10); RDW 14.6 % (11.5-14.5); WBC 8.6 10x3/uL (4.8-10.8)
[2020-12-20 06:53] LABS: ALKALINE PHOSPHATASE 106 U/L (30-120); ALT (SGPT) 22 U/L (10-68); BILIRUBIN - TOTAL 0.31 mg/dL (0.2-1.3); CALC OSMOLALITY 276 mosm/kg (275-300); CALCIUM 7.7 mg/dL (8.5-10.1); CHLORIDE - SERUM 105 mmol/L (98-107); CREATININE - SERUM 0.9 mg/dL (0.6-1.3); GLUCOSE 133 mg/dL (74-106); MAGNESIUM - SERUM 1.8 mg/dL (1.8-2.4); PHOSPHOROUS 3.8 mg/dL (2.5-4.9); POTASSIUM - SERUM 3.9 mmol/L (3.5-5.1); PROTEIN - SERUM 4.8 g/dL (6.4-8.2); SODIUM 138 mmol/L (136-145); UREA NITROGEN 10 mg/dL (7-18); eGFR NON AFRICAN AMERICAN 86 mL/min (90-120)
--- NOTE | 2020-12-20 09:00 | NUR ---
ALERT AND ORIENTED X4. ABDOMINAL DRESSING AND BINDER INTACT WITH BOWEL SOUNDS NOTED. STATED HAD A COUPLE BOWEL MOVEMENTS LAST NIGHT. ENCOURAGED TO USE CALL LIGHT FOR ASSSIT WITH FALL PRECAUTIONS IN PLACE.
[2020-12-20 09:30] VITALS: BP 151/82
[2020-12-20] MEDS ORDERED: HYDROCODON-ACE1 EAC7 PO (10:14)
--- NOTE | 2020-12-20 12:27 | MORECARE ---
"CASE MANAGEMENT DISCHARGE SUMMARY PATIENT: MIKY OSUNA UNIT: [id number] ADM DATE: 12/10/20 AGE: 80 : 40 SEX: M ROOM/BED: D.2217 AUTHOR: KEYLADOC PHYSICIAN: REFERRING PHYSICIAN: FELIPE GRECO MD DATE OF SERVICE: 12/20/20 Discharge Plan Patient Name: MIKY OSUNA Facility: [facility]:[place] [facility] 1940 Planned Disposition: Home Anticipated Discharge Date: 12/20/20 Discharge Date: Expected LOS: 10 Initial Reviewer: [email or web address] Initial Review Date: 12/10/2020 Generated: 12/20/20 1:26 pm Comments DCP- Discharge Planning Updated by [email or web address]: Luiz Alex on 12/20/20 10:[address] NO NEEDS | CM met with patient to complete DC plan and to evaluate needs. Patient lives at home independently with his spouse, Karolina Monahan ([phone]). At discharge, the patient plans to return home and feels this is a safe discharge. CM discussed availability of home health, rehab services, and medical equipment. Patient declined HHS, SNF, IPR, and DME. Patient voiced no other needs at this time and is satisfied with DC plan. Transportation provider at discharge will be with Karolina. CM will continue to follow and will assist as needed with dc plans/needs. DCPIA - Discharge Planning Initial Assessment Updated by [email or web address]: Luiz Alex on 12/20/20 12:24 pm * Is the patient Alert and Oriented? Yes * How many steps to enter\\exit or inside your home? 4/0 * PCP ANGUS * Pharmacy [facility] [address] WITH [employer] * Preadmission Environment Home with Family * ADLs Independent * Equipment None * Other Equipment NONE * List name and contact numbers for known caregivers / representatives who currently or will assist patient after discharge: Karolina Monahan (spouse) [phone] * Verbal permission to speak to the caregivers and representatives has been obtained from the patient. Yes * Community resources currently utilized None * Please name any agencies selected above. n/a * Additional services required to return to the preadmission environment? No * Can the patient safely return to the preadmission environment? Yes * Has this patient been hospitalized within the prior 30 days at any hospital? No Patient Name: MIKY OSUNA Page [phone] at 1227 All edits/amendments must be made on the electronic document DICTATION DATE: 12/20/201225 APPAREL MANAGER: BARBARA 12/20/201225 RPT#: [id number] DC DATE: STATUS: ADM IN [facility] [address] [place] [address] END OF REPORT"
[2020-12-20 13:05] VITALS: BP 142/74
[2020-12-20] MEDS ORDERED: LEVOFLOXACIN500 MG PO (14:04)
[2020-12-20] MEDS ORDERED: MUCINEX600 MG PO (14:05)
[2020-12-20] MEDS ORDERED: TESSALON PERLE100 MG PO (14:05)
--- NOTE | 2020-12-20 16:24 | NUR ---
CENTRAL LINE DISCONTINED WITH NO S/S OF ABNORMAL BLEEDING NOTED. PATIENT AND VERBALIZED UNDERSTANDING OF DISCHARGE INSTRUCTION WITH RX [facility] GIVEN TO . STABLE AT TIME OF DISCHARGE.
--- NOTE | 2020-12-21 08:19 | MORECARE ---
"CASE MANAGEMENT DISCHARGE SUMMARY PATIENT: MIKY OSUNA UNIT: [id number] ADM DATE: 12/10/20 AGE: 80 : 40 SEX: M ROOM/BED: D.2217 AUTHOR: ABILIO RAMIRES PHYSICIAN: REFERRING PHYSICIAN: FELIPE GRECO MD DATE OF SERVICE: 12/21/20 Discharge Plan Patient Name: MIKY OSUNA Facility: [facility]:[place] : 1940 Planned Disposition: Home Anticipated Discharge Date: 12/20/20 Discharge Date: 12/20/2020 Expected LOS: 10 Initial Reviewer: OPAL Initial Review Date: 12/10/2020 Generated: 12/21/20 9:19 am Comments DCP- Discharge Planning Updated by [email or web address]: Luiz Alex on 12/20/20 10:[address] NO NEEDS | CM met with patient to complete DC plan and to evaluate needs. Patient lives at home independently with his spouse, Karolina Monahan ([phone]). At discharge, the patient plans to return home and feels this is a safe discharge. CM discussed availability of home health, rehab services, and medical equipment. Patient declined HHS, SNF, IPR, and DME. Patient voiced no other needs at this time and is satisfied with DC plan. Transportation provider at discharge will be with Karolina. CM will continue to follow and will assist as needed with dc plans/needs. DCPIA - Discharge Planning Initial Assessment Updated by [email or web address]: Luiz Alex on 12/20/20 12:24 pm * Is the patient Alert and Oriented? Yes * How many steps to enter\\exit or inside your home? 4/0 * PCP [facility] * Pharm[facility] [address] [facility] * Preadmission Environment Home with Family * ADLs Independent * Equipment None * Other Equipment NONE * List name and contact numbers for known caregivers / representatives who currently or will assist patient after discharge: Karolina Monahan (spouse) [phone] * Verbal permission to speak to the caregivers and representatives has been obtained from the patient. Yes * Community resources currently utilized None * Please name any agencies selected above. n/a * Additional services required to return to the preadmission environment? No * Can the patient safely return to the preadmission environment? Yes * Has this patient been hospitalized within the prior 30 days at any hospital? No Last DP export: 12/20/20 10:27 a Patient Name: MIKY OSUNA Page [id number] at 0819 All edits/amendments must be made on the electronic document DICTATION DATE: 12/21/20818 [employer] SPECIALIST: BARBARA 12/21/20818 RPT#: [id number] DC DATE:12/20/20 STATUS: DIS IN [facility] [address] [place] [address] END OF REPORT"
== END 2020-12-20 16:25 | disposition home or self-care (01) | DRG 329 ==
LOC: D.MS 16:10 → D.ICU 12-16 10:22 → D.MS 12-17 10:09
PROVIDERS: Family Medicine; Family Medicine Adult Medicine; Internal Medicine Gastroenterology; Internal Medicine Hematology & Oncology; Surgery; ADMIT Family Medicine; ATTEND Family Medicine
PROC: 05H533Z Insertion of Infusion Device into Right Subclavian Vein, Percutaneous Approach (ICD-10-PCS; 2020-12-16)
PROC: 0DTF0ZZ Resection of Right Large Intestine, Open Approach (ICD-10-PCS; principal; 2020-12-16 08:00)
PROC: 0DBU0ZZ Excision of Omentum, Open Approach (ICD-10-PCS; 2020-12-16 08:00)
DX: C18.4 Malignant neoplasm of transverse colon (principal); J18.9 Pneumonia, unspecified organism; K56.7 Ileus, unspecified; J47.0 Bronchiectasis with acute lower respiratory infection; K59.00 Constipation, unspecified; E03.9 Hypothyroidism, unspecified; K21.9 Gastro-esophageal reflux disease without esophagitis; N40.0 Benign prostatic hyperplasia without lower urinary tract symptoms; G62.9 Polyneuropathy, unspecified; K76.9 Liver disease, unspecified

== ENCOUNTER 2021-02-11 10:07 | Day surgery (SDC) | payer OTHER ==
[~2021-02-11] VITALS: Ht 167.6 cm; Wt 72.3 kg
[~2021-02-11 10:07] MED LIST: FLOMAX0.4 MG PO; GABAPENTIN100 MG PO; HYDROCODON-ACE1 EAC7 PO; LEVOFLOXACIN500 MG PO; LEVOXYL50 MCG PO; LEXAPRO5 MG PO; MUCINEX600 MG PO; PROPRANOLOL HCL20 MG PO; PROSCAR5 MG PO; PROTONIX40 MG PO; TESSALON PERLE100 MG PO
[2021-02-11 10:35] LABS: BASOPHILS 0.3 % (0-2); EOSINOPHILS 3.1 % (0-7); HEMATOCRIT 38.3 % (42.0-54.0); HEMOGLOBIN 12.2 g/dL (13.5-17.5); IMMATURE GRANULOCYTES 0.1 % (0-5); LYMPHOCYTES 11.1 % (15-50); MCH 25.3 pg (26.0-34.0); MCHC 31.9 g/dL (31.0-37.0); MCV 79.3 fL (80.0-100.0); MEAN PLATELET VOLUME 9.2 fL (7.4-10.4); MONOCYTES 8.6 % (2-11); NEUTROPHIL ABS# 5.53 10x3/uL (1.78-5.38); NEUTROPHILS 76.8 % (40-80); PLATELET COUNT 243 10x3/uL (130-400); RBC 4.83 10x6/uL (4.20-6.10); RDW 14.5 % (11.5-14.5); WBC 7.2 10x3/uL (4.8-10.8)
[2021-02-11 10:41] LABS: ANION GAP 11.5 mmol/L (8-16); APTT 26.6 SECONDS (22.8-39.4); CALCIUM 9.3 mg/dL (8.5-10.1); CARBON DIOXIDE 29.1 mmol/L (21.0-32.0); CREATININE - SERUM 1.1 mg/dL (0.6-1.3); INR 1.16 (0.85-1.17); POTASSIUM - SERUM 4.6 mmol/L (3.5-5.1); PROTIME 13.7 SECONDS (11.6-15.0)
[2021-02-11 11:17] VITALS: BP 115/68; Ht 167.6 cm; Wt 72.3 kg
--- NOTE | 2021-02-11 14:43 | NUR ---
DC INSTRUCTIONS GIVEN TO PT/SPOUSE. STATE UNDERSTANDING. DC'D IV CATH FULLY INTACT. WILL DC FROM UNIT SHORTLY.
--- NOTE | 2021-02-11 14:55 | NUR ---
PT LEFT UNIT VIA WC AT 1455
== END 2021-02-11 14:55 | disposition home or self-care (01) ==
LOC: D.OPS 10:07
PROVIDERS: Anesthesiology; ATTEND Surgery
DX: C18.4 Malignant neoplasm of transverse colon (principal); D64.9 Anemia, unspecified; R53.1 Weakness; Z98.890 Other specified postprocedural states